=== PATIENT | female | born 1965 | race Caucasian/White ===

== ENCOUNTER 2018-06-14 14:31 | Inpatient (IN) | payer BC ==
[~2018-06-14] VITALS: Ht 160 cm; Wt 97.1 kg
[2018-06-14] MEDS ORDERED: OMEPRAZOLE20 M1 PO (14:58)
--- NOTE | 2018-06-14 15:01 | NUR ---
SE RECIBE PTE ALERTA Y ORIENTADA EN TIEMPO, LUGAR Y PERSONA QUIEN REFIERE DOLOR ABDOMINAL EN CUADRANTE INFERIOR DERECHO Y NAUSEAS DESDE BELLA. SE MARLY S/V Y SE UBICA PTE EN AREA DE OBSERVACION.
--- NOTE | 2018-06-14 15:59 | NUR ---
SERRECIBE PTE FEMENINAALERTAY ORIENTADAX3,ACOMPANADADEFAMILIAR,ESEVALUADA X ,SEORIENTA A PTE SOBRE ORDEN MEDICA,SE MARLY MUESTYRAS Y SEENVIAN A LABORATORIO,SE CANALIZAY COLOCA IVF PATENTE AREA CARLIN DE EDEMA Y ENROJECIMIENTO,SE ADMINISTRAN MEDICAMENTOS LOS CUALES TOLERA,SE REALIZACT,SE MSANTIENE A PTE EN OBSERVACIONPOR CAMBIOS. D
[2018-06-17] MEDS ORDERED: OMEPRAZOLE20 M1 PO (13:36)
[2018-06-17] MEDS ORDERED: TYLENOL EXTRA500 MG PO (13:36)
[2018-06-17] MEDS ORDERED: DICLOFENAC POTA50 MG PO (13:36)
== END 2018-06-17 13:56 | disposition home or self-care (01) | DRG 343 ==
LOC: ER 14:31 → SURG 16:36 → SEC-K 16:36 → SURG 19:02
PROVIDERS: ADMIT Surgery
PROC: BW21ZZZ Computerized Tomography (CT Scan) of Abdomen and Pelvis (ICD-10-PCS; 2018-06-14)
PROC: 0DTJ4ZZ Resection of Appendix, Percutaneous Endoscopic Approach (ICD-10-PCS; principal; 2018-06-14 18:00)
DX: K35.890 Other acute appendicitis without perforation or gangrene (principal); K57.30 Diverticulosis of large intestine without perforation or abscess without bleeding; N20.0 Calculus of kidney